=== PATIENT | female | born 1950 | race Caucasian/White ===

== ENCOUNTER → 2021-05-04 | Day surgery (SDC) | payer OTHER ==
[~2021-05-04] VITALS: Ht 162.6 cm; Wt 74.0 kg
[~2021-05-04] MED LIST: CRESTOR10 MG PO; MELOXICAM15 MG PO; TYLENOL PM PO
== END | disposition home or self-care (01) ==
LOC: FAS 07:07
DX: Z12.11 Encounter for screening for malignant neoplasm of colon (principal); D12.3 Benign neoplasm of transverse colon; K57.30 Diverticulosis of large intestine without perforation or abscess without bleeding; K64.8 Other hemorrhoids; M19.90 Unspecified osteoarthritis, unspecified site; E78.00 Pure hypercholesterolemia, unspecified; Z87.19 Personal history of other diseases of the digestive system; Z85.3 Personal history of malignant neoplasm of breast; Z88.5 Allergy status to narcotic agent; Z90.710 Acquired absence of both cervix and uterus; Z72.89 Other problems related to lifestyle
CPT/HCPCS: J2704; J7120